=== PATIENT | female | born 1995 | race Caucasian/White ===

== ENCOUNTER 2018-04-10 08:01 | Emergency (ER) | payer MEDICAID ==
[~2018-04-10] VITALS: Ht 162.6 cm; Wt 57.0 kg
[2018-04-10] MEDS ORDERED: SODIUM CHLORIDE 0.9% 1,000 ML IV ONE (08:12)
[2018-04-10] MEDS ORDERED: MIDAZOLAM HCL 2 MG/2 ML VIAL IV ONE (08:15)
[2018-04-10 08:37] LABS: EOSINOPHILS % 0.6 % (0.0-5.0); HEMATOCRIT. 35.6 % (36.0-48.0); HEMOGLOBIN. 11.9 g/dL (12.0-16.0); LYMPHOCYTES % 21.9 % (20.0-50.0); MEAN CORPUSCULAR HEMOGLOBIN 29.8 pg (28.0-32.0); MEAN CORPUSCULAR VOLUME 88.6 fL (81.0-99.0); MEAN PLATELET VOLUME 7.2 fl (7.4-10.4); MONOCYTES % 5.7 % (2.0-8.0); NEUTROPHILS % 70.8 % (40.0-76.0); PLATELET 323 x1000/uL (130-400); RED BLOOD CELL COUNT 4.01 mill/uL (4.2-5.4); RED CELL DISTRIBUTION WIDTH 15.3 % (11.6-14.6)
[2018-04-10 08:46] LABS: CHLORIDE 103 mEq/L (98-107)
[2018-04-10 08:53] LABS: HCG SCREEN NEGATIVE
[2018-04-10 08:54] LABS: ETHANOL BLOOD < 10 mg/dL
[2018-04-10] MEDS ORDERED: MIDAZOLAM HCL 2 MG/2 ML VIAL IM ONE (12:30)
[2018-04-10 13:26] LABS: *BENZODIAZEPINES SCREEN URINE NEGATIVE (NEGATIVE)
[2018-04-10 13:28] LABS: *COCAINE SCREEN URINE NEGATIVE (NEGATIVE); METHADONE URINE SCREEN NEGATIVE (NEGATIVE); OPIATES URINE SCREEN NEGATIVE (NEGATIVE); PHENCYCLIDINE URINE SCREEN NEGATIVE (NEGATIVE)
[2018-04-10 13:29] LABS: *BARBITURATES SCREEN URINE NEGATIVE (NEGATIVE)
[2018-04-10 13:34] LABS: *AMPHETAMINES SCREEN URINE PRESUMTIVE POSITIVE (NEGATIVE); CANNABINOID URINE SCREEN PRESUMTIVE POSITIVE (NEGATIVE)
[2018-04-10] MEDS ORDERED: HALOPERIDOL LACTATE 5MG/ML VIAL IM ONE ×2 (15:15→19:45)
[2018-04-10] MEDS ORDERED: TETANUS, DIPHTHERIA, PERTUSSIS VAC/PF 0.5ML (>7YR OLD) IM ONE (16:15)
[2018-04-10] MEDS ORDERED: ZIPRASIDONE MESYLATE 20MG/VIAL IM ONE (23:30)
[2018-04-11] MEDS ORDERED: ZIPRASIDONE MESYLATE 20MG/VIAL IM SCH (03:45)
[2018-04-11] MEDS ORDERED: LORAZEPAM 2MG/ML CPJ IM ONE (14:45)
[2018-04-11] MEDS ORDERED: OLANZAPINE 10 MG/VIAL IM ONE (14:45)
[2018-04-12] MEDS ORDERED: ZIPRASIDONE MESYLATE 20MG/VIAL IM ONE (08:00)
[2018-04-12] MEDS ORDERED: MIDAZOLAM HCL 2 MG/2 ML VIAL IM ONE (08:00)
[2018-04-12] MEDS ORDERED: OLANZAPINE 10 MG/VIAL IM ONE (15:30)
[2018-04-12] MEDS ORDERED: LORAZEPAM 2MG/ML CPJ IM ONE (15:30)
[2018-04-12] MEDS ORDERED: ACETAMINOPHEN 325MG TABLET PO ONE (18:45)
[2018-04-13 12:00] VITALS: BP 121/68
== END 2018-04-13 13:23 ==
LOC: EDBD 08:08 → ER 08:08
DX: G92 Toxic encephalopathy (principal); F23 Brief psychotic disorder; F15.129 Other stimulant abuse with intoxication, unspecified
CPT/HCPCS: 36415; 70450; 80048; 80305; 80307; 80329; 84703; 85025; 90715; 96360; 96361; 96372; 99285; G0482; J1630; J2060; J2250; J3486; J3490; J7030; Z7610